=== PATIENT | female | born 2000 | race Caucasian/White ===

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

== ENCOUNTER 2021-03-17 23:40 | Emergency (ER) | payer MEDICAID ==
[~2021-03-17] VITALS: Ht 160 cm; Wt 87.0 kg
[2021-03-17 23:45] VITALS: BP 135/82
[2021-03-18] MEDS ORDERED: PREDNISONE 20MG TABLET PO ONE (01:00)
[2021-03-18] MEDS ORDERED: ALBUTEROL (0.083%) 2.5MG/3ML NEB HHN ONE (01:00)
[2021-03-18] MEDS ORDERED: ALBU18HF2 IH (01:55)
[2021-03-18] MEDS ORDERED: P20 MT (01:55)
== END 2021-03-18 02:11 | disposition home or self-care (01) ==
LOC: ER 23:40
DX: J45.901 Unspecified asthma with (acute) exacerbation (principal)
CPT/HCPCS: 81025; 94640; 99283; J7512; Z7610

== ENCOUNTER 2021-08-08 22:03 | Emergency (ER) | payer MEDICAID, OTHER ==
[~2021-08-08] VITALS: Ht 160 cm; Wt 89.0 kg
[~2021-08-08 22:03] MED LIST: ALBU18HF2 IH; P20 MT
[2021-08-08] MEDS ORDERED: IBUPROFEN 800MG TABLET PO ONE (22:45)
[2021-08-08 23:00] VITALS: BP 135/80
[2021-08-08] MEDS ORDERED: NAPR-1176 MT (23:42)
== END 2021-08-08 23:59 | disposition home or self-care (01) ==
LOC: ER 22:03
DX: M25.531 Pain in right wrist (principal); M77.8 Other enthesopathies, not elsewhere classified; J45.909 Unspecified asthma, uncomplicated
CPT/HCPCS: 29125; 73110; 81025; 99283

== ENCOUNTER 2022-05-01 13:22 | Emergency (ER) | payer MEDICAID, OTHER ==
[~2022-05-01] VITALS: Ht 160 cm; Wt 95.5 kg
[~2022-05-01 13:22] MED LIST changes: +NAPR-1176 MT
[2022-05-01 13:29] VITALS: BP 130/83
[2022-05-01] MEDS ORDERED: ALBU6.7H3 INH (15:33)
== END 2022-05-01 15:45 | disposition home or self-care (01) ==
LOC: ER 13:22
DX: J06.9 Acute upper respiratory infection, unspecified (principal); R05.9 Cough, unspecified; J45.909 Unspecified asthma, uncomplicated; Z79.899 Other long term (current) drug therapy
CPT/HCPCS: 87804; 99283

== ENCOUNTER 2022-07-18 04:51 | Emergency (ER) | payer MEDICAID ==
[~2022-07-18] VITALS: Ht 160 cm; Wt 98.1 kg
[~2022-07-18 04:51] MED LIST changes: +ALBU6.7H3 INH
[2022-07-18 04:57] VITALS: BP 116/59
[2022-07-18] MEDS ORDERED: KETOROLAC 30MG/ML VIAL IV STA (07:29)
[2022-07-18] MEDS ORDERED: ONDANSETRON HCL 4MG/2ML INJ IV STA (07:29)
[2022-07-18 08:57] LABS: HEMATOCRIT. 41.2 % (36.0-48.0); HEMOGLOBIN. 13.5 g/dL (12.0-16.0); MEAN CORPUSCULAR HEMOGLOBIN 28.9 pg (28.0-32.0); MEAN CORPUSCULAR VOLUME 87.9 fL (81.0-99.0); MEAN PLATELET VOLUME 9.2 fl (7.4-10.4); PLATELET 255 x1000/uL (130-400); RED BLOOD CELL COUNT 4.68 mill/uL (4.2-5.4)
[2022-07-18 09:05] LABS: CHLORIDE 103 mEq/L (98-107)
[2022-07-18 09:15] LABS: CLARITY URINE TURBID (CLEAR); COLOR URINE ORANGE (YELLOW); KETONES URINE NEGATIVE (NEGATIVE); LEUKOCYTE ESTERASE URINE NEGATIVE (NEGATIVE); NITRITE URINE NEGATIVE (NEGATIVE); OCCULT BLOOD URINE 3+ (NEGATIVE); PROTEIN URINE NEGATIVE (NEGATIVE); SPECIFIC GRAVITY URINE 1.031 (1.005-1.030); UROBILINOGEN URINE 0.2 E.U./dL (0.2-1.0)
[2022-07-18 09:20] LABS: HCG SCREEN NEGATIVE
[2022-07-18 10:23] LABS: PROTHROMBIN TIME 11.1 sec (9.6-11.0)
[2022-07-18 11:21] LABS: PLATELET ESTIMATE NORMAL
[2022-07-18] MEDS ORDERED: TOPUD PO (12:01)
[2022-07-18] MEDS ORDERED: ONDA4TAB50 PO (12:01)
== END 2022-07-18 12:14 | disposition home or self-care (01) ==
LOC: ER 04:51
DX: R10.13 Epigastric pain (principal); D73.4 Cyst of spleen; J45.909 Unspecified asthma, uncomplicated
CPT/HCPCS: 36415; 74176; 76705; 80053; 81003; 81025; 83690; 84703; 85025; 85610; 96374; 96375; 99285; J1885; J2405; Z7610

== ENCOUNTER 2023-05-04 10:42 | Emergency (ER) | payer MEDICAID, OTHER ==
[~2023-05-04] VITALS: Ht 167.6 cm; Wt 86.0 kg
[~2023-05-04 10:42] MED LIST changes: +ONDA4TAB50 PO; +TOPUD PO
[2023-05-04 10:48] VITALS: BP 142/88; PULSE 103; RESP 20; TEMP 98.4; O2SAT 100
[2023-05-04 11:14] LABS: CLARITY URINE CLOUDY (CLEAR); COLOR URINE YELLOW (YELLOW); GLUCOSE URINE NEGATIVE (NEGATIVE); KETONES URINE NEGATIVE (NEGATIVE); LEUKOCYTE ESTERASE URINE NEGATIVE (NEGATIVE); NITRITE URINE NEGATIVE (NEGATIVE); OCCULT BLOOD URINE NEGATIVE (NEGATIVE); PROTEIN URINE NEGATIVE (NEGATIVE); SPECIFIC GRAVITY URINE 1.028 (1.005-1.030); UROBILINOGEN URINE 0.2 E.U./dL (0.2-1.0)
[2023-05-04 11:33] LABS: RBC URINE 0-2 /hpf (0-2); SQUAMOUS EPITHELIAL CELL URINE 1+ /lpf (RARE/1+)
[2023-05-04 11:34] LABS: BACTERIA URINE 1+; YEAST URINE NONE SEEN
[2023-05-04] MEDS ORDERED: SULF1TAB48 MT (14:19)
== END 2023-05-04 14:25 | disposition home or self-care (01) ==
LOC: ER 11:09
DX: N39.0 Urinary tract infection, site not specified (principal); J45.909 Unspecified asthma, uncomplicated
CPT/HCPCS: 81003; 81025; 99283

== ENCOUNTER 2024-07-27 13:25 | Emergency (ER) | payer MEDICAID, OTHER ==
[~2024-07-27] VITALS: Ht 167.6 cm; Wt 86.1 kg
[~2024-07-27 13:25] MED LIST changes: +SULF1TAB48 MT
[2024-07-27 13:34] VITALS: O2SAT 99
[2024-07-27] MEDS: CYCLOBENZAPRINE 10MG TABLET PO ONE (17:52)
[2024-07-27] MEDS: KETOROLAC 30MG/ML VIAL IM ONE (17:52)
[2024-07-27 18:06] LABS: CLARITY URINE CLEAR (CLEAR); COLOR URINE YELLOW (YELLOW); GLUCOSE URINE NEGATIVE (NEGATIVE); KETONES URINE NEGATIVE (NEGATIVE); LEUKOCYTE ESTERASE URINE NEGATIVE (NEGATIVE); NITRITE URINE NEGATIVE (NEGATIVE); OCCULT BLOOD URINE NEGATIVE (NEGATIVE); PROTEIN URINE NEGATIVE (NEGATIVE); SPECIFIC GRAVITY URINE 1.022 (1.005-1.030); UROBILINOGEN URINE 0.2 E.U./dL (0.2-1.0)
[2024-07-27] MEDS ORDERED: NAPR-681 PO (19:02)
[2024-07-27] MEDS ORDERED: GABA-1180 MT (19:02)
[2024-07-27 19:18] VITALS: BP 139/72; PULSE 81; RESP 18; TEMP 36.6; O2SAT 99
== END 2024-07-27 19:21 | disposition home or self-care (01) ==
LOC: ER 13:25
DX: M54.41 Lumbago with sciatica, right side (principal); M51.47 Schmorl's nodes, lumbosacral region; J45.909 Unspecified asthma, uncomplicated; Z79.1 Long term (current) use of non-steroidal anti-inflammatories (NSAID)
CPT/HCPCS: 81003; 81025; 72100; 96372; 99284; J1885; Z7610